=== PATIENT | male | born 1970 | race Caucasian/White ===

== ENCOUNTER 2019-05-26 08:02 | Day surgery (SDC) | payer BC ==
[~2019-05-26 08:02] MED LIST: CEFAZOLIN SODIUM 2 GM in DEXTROSE 5%-WATER 100 ML IV PRN
[2019-05-26 08:53] LABS: HEMATOCRIT 40.6 % (37.9-51.0); HEMOGLOBIN 13.9 g/dL (13.5-17.0); MEAN CORPUSCULAR HEMOGLOBIN 29.2 pg (27.0-33.4); MEAN CORPUSCULAR HGB CONC 34.1 g/dL (32.0-36.0); MEAN CORPUSCULAR VOLUME 86 fl (80-97); PLATELET COUNT 273 10^3/uL (150-450); RED BLOOD COUNT 4.75 10^6/uL (4.35-5.55); RED CELL DISTRIBUTION WIDTH 13.5 % (11.5-14.0); WHITE BLOOD COUNT 7.4 10^3/uL (4.0-10.5)
[2019-05-26 09:12] LABS: ANION GAP 12 (5-19); BLOOD UREA NITROGEN 16 mg/dL (7-20); CALCIUM 9.4 mg/dL (8.4-10.2); CARBON DIOXIDE 25 mmol/L (22-30); CHLORIDE 101 mmol/L (98-107); GLUCOSE 98 mg/dL (75-110); POTASSIUM 4.5 mmol/L (3.6-5.0)
[2019-05-26] MEDS ORDERED: LIDOCAINE 2% INJ-PF (20 MG/ML) 2 ML AMPUL ONE (10:23)
[2019-05-26] MEDS ORDERED: DEXAMETHASONE SOD PHOSPHATE INJ 4 MG/1 ML VIAL ONE (10:23)
[2019-05-26] MEDS ORDERED: KETOROLAC TROMETHAMINE 60 MG/2 ML SDV ONE (10:23)
[2019-05-26] MEDS ORDERED: ONDANSETRON HCL INJ/PF 4 MG/2 ML SDV ONE (10:23)
[2019-05-26] MEDS ORDERED: HYDROMORPHONE HCL INJ/PF 2 MG/ML AMPULE ONE (10:42)
[2019-05-26] MEDS ORDERED: PROPOFOL INJ 200 MG/20 ML VIAL IV ONE (10:42)
[2019-05-26] MEDS ORDERED: MIDAZOLAM 2 MG/2 ML INJ ONE (10:42)
[2019-05-26] MEDS ORDERED: FENTANYL CITRATE INJ/PF 100 MCG/2 ML AMPUL ONE (10:42)
[2019-05-26] MEDS ORDERED: BUPIVACAINE HCL 0.5 % INJ/PF 30 ML SDV ONE (10:51)
[2019-05-26] MEDS ORDERED: PROMETHAZINE HCL INJ 25 MG/1 ML VIAL IV PRN ×2 (11:34)
[2019-05-26] MEDS ORDERED: MEPERIDINE HCL/PF INJ 25 MG/1 ML DISP.SYRIN IV PRN (11:34)
[2019-05-26] MEDS ORDERED: FENTANYL CITRATE INJ/PF 100 MCG/2 ML AMPUL IV PRN ×3 (11:34)
[2019-05-26] MEDS ORDERED: DIPHENHYDRAMINE HCL 50 MG/ML VIAL IV PRN (11:34)
[2019-05-26] MEDS ORDERED: HYDROMORPHONE HCL INJ/PF 2 MG/ML AMPULE IV PRN (11:35)
--- NOTE | 2019-05-26 13:13 | Operative Report ---
Operative Report DATE OF SURGERY: 05/26/19 PREOPERATIVE DIAGNOSIS: 1. Left ankle chronic lateral ligament instability. 2. Right hand Dupuytren's contracture ring and small fingers POSTOPERATIVE DIAGNOSIS: 1. Left ankle chronic lateral ligament instability. 2. Right hand Dupuytren's contracture ring and small fingers OPERATION: 1. Left ankle lateral ligament reconstruction with internal brace. 2. Right hand Dupuytren's fasciectomy ring and small fingers SURGEON: ILDEFONSO BRAVO ANESTHESIA: GA COMPLICATIONS: None ESTIMATED BLOOD LOSS: Minimal PROCEDURE: Indications for procedure: Mr. Renee is a 49-year-old man with a history of multiple lateral ankle sprains and chronic lateral ankle instability. MRI confirms chronic injury to the ATFL and CFL. The patient also complains of pain as a result of Dupuytren's fascia in the palm of the right hand extending towards the digit of the right ring finger. Description of procedure: Following the induction of a general anesthetic and administration of 2 g of Ancef, the patient was positioned supine on the operating room table. All bony prominences were padded. A bump was placed under the left hip to internally rotate the left leg. Both the left foot and ankle and right upper extremity were sterilely prepped with ChloraPrep and draped in standard fashion. We first turned her attention to the left ankle the left lower extremity was exsanguinated with a Deny bandage and the tourniquet inflated to 300 mmHg. An extensile incision to the lateral aspect of the ankle was performed with an incision parallelling the posterior border of the fibula and then extending anteriorly towards the talar neck. Sharp incision was performed through skin with blunt dissection to the subcutaneous tissue. Care was taken to identify and protect superficial branching nerves and blood vessels. Next the ATFL and CFL were taken sharply off the fibula. The ligaments were found to have been Morphis consistent with a chronic ligamentous insufficiency. Underneath the ligaments the talar neck was visualized. A small incision was made in the region of the talar neck at this point for later internal brace fixation. Next the distal margin of the fibula was decorticated down to good bleeding bone. 3 suture anchors were placed into the distal fibula. To sure tack anchors were placed at the most anterior and posterior portions of the fibula and centrally a swivel lock anchor was placed preloaded with fiber tape. With the foot in dorsiflexion and eversion the ATFL and CFL were imbricated in a shortened fashion back down to the distal fibula. At this point the fiber tape was loaded into a separate anchor. Under image intensification a hole in the talar neck was drilled and tapped. The fiber tape was then docked into the talar neck to complete the internal brace fixation. The ankle was taken through a full range of motion. There was full dorsiflexion, plantarflexion, inversion and eversion. Anterior drawer test was performed with little anterior motion. The wound was then irrigated and the skin reapproximated with 3-0 nylon suture. Quarter percent Marcaine was injected into the incision for postoperative analgesia and a bulky sterile dressing was applied. Turned her attention to the Dupuytren's contracture in the right hand. The arm was exsanguinated and the tourniquet inflated to 250 mmHg. A transverse incision was made in the palm in line with the distal palmar crease. Skin flaps were elevated proximal and distal to the palmar crease and the Dupuytren's fascia was sharply excised. Undermining was performed to the level of the proximal digital crease in the ring finger to remove the cord all the way towards the digit. Digital nerves and arteries were visualized throughout the procedure and protected. The wound was irrigated and skin reapproximated with nylon suture. Marcaine was injected for postoperative analgesia. And a bulky sterile dressing was applied. A splint was now applied to the left ankle with the foot in neutral dorsiflexion. The patient tolerated these procedures well without complications and was brought to recovery room in stable condition.
[2019-05-26] MEDS: FENTANYL CITRATE INJ/PF 100 MCG/2 ML AMPUL ONE ×2 (13:25→13:30)
[2019-05-26] MEDS ORDERED: LIDOCAINE 2%/EPINEPHRINE INJ 20 ML VIAL ONE (13:44)
[2019-05-26] MEDS ORDERED: LIDOCAINE 2% INJ-PF (100 MG/5 ML) SYRINGE ONE (13:45)
[2019-05-26] MEDS ORDERED: ROPIVACAINE HCL 0.5% INJ/PF (5 MG/1 ML) 30 ML SDV ONE (13:45)
[2019-05-26] MEDS ORDERED: OXYCODONE-ACETAMINOPHEN 5-325 MG TABLET PO PRN (13:49)
[2019-05-26] MEDS ORDERED: ONDANSETRON HCL INJ/PF 4 MG/2 ML SDV IV PRN (13:50)
[2019-05-26] MEDS ORDERED: OXYCODONE-ACETAMINOPHEN 5-325 MG TABLET ONE (15:10)
--- NOTE | 2019-05-26 15:48 | RADIOLOGY REPORT (SQ) ---
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 FLUOROSCOPY TIME: Less than 0.1 minute. 3 images saved to PACS. TECHNIQUE: Intra-operative images acquired during surgical procedure to evaluate progress. NUMBER OF IMAGES: 3 images. LIMITATIONS: None. FINDINGS: Images of the ankle acquired during the procedure. IMPRESSION: IMAGE(S) OBTAINED DURING PROCEDURE. COMMENT: Quality ID 145: Final reports for procedures using fluoroscopy that document radiation exp osure indices, or exposure time and number of fluorographic images (if radiation exposure indices are not available) Please consult full operative report of the attending physician for description of the procedure. TECHNICAL DOCUMENTATION: JOB ID: [id number] [employer]- All Rights Reserved Reading location - IP/workstation name: [email or web address]
--- NOTE | 2019-05-26 15:48 | RADIOLOGY REPORT (SQ) ---
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 FLUOROSCOPY TIME: Less than 0.1 minute. 3 images saved to PACS. TECHNIQUE: Intra-operative images acquired during surgical procedure to evaluate progress. NUMBER OF IMAGES: 3 images. LIMITATIONS: None. FINDINGS: Images of the ankle acquired during the procedure. IMPRESSION: IMAGE(S) OBTAINED DURING PROCEDURE. COMMENT: Quality ID [id number]: Final reports for procedures using fluoroscopy that document radiation exp osure indices, or exposure time and number of fluorographic images (if radiation exposure indices are not available) Please consult full operative report of the attending physician for description of the procedure. TECHNICAL DOCUMENTATION: JOB ID: [id number] [employer]- All Rights Reserved Reading location - IP/workstation name: [email or web address]
[2019-05-26 17:02] VITALS: BP 129/89
== END 2019-05-26 16:15 | disposition home or self-care (01) ==
LOC: OROUT 08:02
PROVIDERS: ATTEND Orthopaedic Surgery
DX: M25.372 Other instability, left ankle (principal); M25.572 Pain in left ankle and joints of left foot; M72.0 Palmar fascial fibromatosis [Dupuytren]; J44.9 Chronic obstructive pulmonary disease, unspecified
CPT/HCPCS: 36415; 85027; 80048; 73610; 27695; 26123; 26125; J2795; J2250; J3490 ×3; J0690; J1100; J1885; J3010; J2001; J1170; J2405; J7060; J2704; 01470